=== PATIENT | female | born 1980 | race American Indian/Alaskan Native ===

== ENCOUNTER 2021-06-25 00:55 | Emergency (ER) | payer MEDICAID ==
[2021-06-25] MEDS ORDERED: IBUPROFEN 400 MG TAB PO ONE (03:39)
--- NOTE | 2021-06-25 03:40 | Emergency Department Report ---
ED ENT HPI - General Chief complaint: Dental/Oral Stated complaint: SEVERE TOOTH PAIN Time Seen by Provider: 06/25/21 03:30 Source: patient, RN notes reviewed Mode of arrival: Ambulatory Limitations: No Limitations - History of Present Illness Initial comments: This patient is a 40-year-old female who states that she is not , who presents to the ER today with a complaint of pain on tooth #17. The patient endorses sensitivity to hot and cold. The patient endorses left- sided neck discomfort and left-sided ear discomfort. Patient occasionally smokes cigarettes and black and milds. Brushes teeth on a semiregular basis. Does not floss on a regular basis. Last dental cleaning was about a year ago. Has not really taken much in the way of pain medication at home. He denies additional injuries and complaints. No stridor or trismus. No malocclusion MD complaint: tooth pain -: Gradual, days(s) Location: tooth # (17) Severity: moderate Quality: aching Consistency: constant Improves with: other Worsens with: other (Eating, palpation,) Context- Dental: history of dental caries, poor dental care Associated Symptoms: gum swelling, toothache. denies: pain with swallowing, sore throat, tinnitus, hearing loss, discharge from ear, rhinorrhea - Related Data Previous Rx's Medication Instructions Recorded Last Taken Type Acetaminophen [Non-Aspirin Extra 500 mg PO Q6HR PRN #30 tablet 06/25/21 Unknown Rx Strength] Chlorhexidine Mouthwash [Peridex] 15 ml MM BID #1 bottle 06/25/21 Unknown Rx Ibuprofen [Motrin] 600 mg PO Q8H PRN #30 tablet 06/25/21 Unknown Rx Nicotine Polacrilex [Nicotine Gum] 4 mg BC PRN #1 pack 06/25/21 Unknown Rx Penicillin V Potassium 500 mg PO Q6HR #28 tab 06/25/21 Unknown Rx Allergies Allergy/AdvReac Type Severity Reaction Status Date / Time No Known Allergies Allergy Unverified 06/25/21 00:59 ED Dental HPI - General Chief complaint: Dental/Oral Stated complaint: SEVERE TOOTH PAIN Time Seen by Provider: 06/25/21 03:30 Source: patient Mode of arrival: Ambulatory Limitations: No Limitations - Related Data Previous Rx's Medication Instructions Recorded Last Taken Type Acetaminophen [Non-Aspirin Extra 500 mg PO Q6HR PRN #30 tablet 06/25/21 Unknown Rx Strength] Chlorhexidine Mouthwash [Peridex] 15 ml MM BID #1 bottle 06/25/21 Unknown Rx Ibuprofen [Motrin] 600 mg PO Q8H PRN #30 tablet 06/25/21 Unknown Rx Nicotine Polacrilex [Nicotine Gum] 4 mg BC PRN #1 pack 06/25/21 Unknown Rx Penicillin V Potassium 500 mg PO Q6HR #28 tab 06/25/21 Unknown Rx Allergies Allergy/AdvReac Type Severity Reaction Status Date / Time No Known Allergies Allergy Unverified 06/25/21 00:59 ED Review of Systems ROS: Stated complaint: SEVERE TOOTH PAIN Other details as noted in HPI Constitutional: denies: fever Eyes: denies: vision change ENT: dental pain. denies: hearing loss, epistaxis Respiratory: see HPI Cardiovascular: as per HPI Endocrine: see HPI Gastrointestinal: as per HPI Genitourinary: as per HPI Musculoskeletal: as per HPI Skin: as per HPI Neurological: as per HPI Psychiatric: as per HPI ED Past Medical Hx - Past Medical History Previous Medical History?: No - Surgical History Past Surgical History?: No - Medications Home Medications: Home Medications Medication Instructions Recorded Confirmed Last Taken Type Acetaminophen [Non-Aspirin Extra 500 mg PO Q6HR PRN #30 tablet 06/25/21 Unknown Rx Strength] Chlorhexidine Mouthwash [Peridex] 15 ml MM BID #1 bottle 06/25/21 Unknown Rx Ibuprofen [Motrin] 600 mg PO Q8H PRN #30 tablet 06/25/21 Unknown Rx Nicotine Polacrilex [Nicotine Gum] 4 mg BC PRN #1 pack 06/25/21 Unknown Rx Penicillin V Potassium 500 mg PO Q6HR #28 tab 06/25/21 Unknown Rx ED Physical Exam - General Limitations: No Limitations General appearance: alert, in no apparent distress, obese - Head Head exam: Present: atraumatic, normocephalic - Eye Eye exam: Present: normal appearance, EOMI. Absent: nystagmus - ENT ENT exam: Present: normal exam, normal orophraynx, mucous membranes moist, TM's normal bilaterally, normal external ear exam, other (There is poor dentition noted. There is an impacted tooth #17. The tooth is minimally tender to percussion. Gingival inflammation is appreciated. There is no periapical abscess.) - Neck Neck exam: Present: normal inspection, full ROM, other (There is no stridor. There is no trismus. There is no malocclusion. There is no neck tenderness. There is no pain with tracheal manipulation). Absent: tenderness, meningismus - Respiratory Respiratory exam: Present: normal lung sounds bilaterally. Absent: respiratory distress, wheezes, stridor, decreased breath sounds - Cardiovascular Cardiovascular Exam: Present: regular rate, normal rhythm, normal heart sounds. Absent: bradycardia, tachycardia, irregular rhythm, systolic murmur, diastolic murmur, rubs, gallop - GI/Abdominal GI/Abdominal exam: Present: soft. Absent: distended, tenderness, guarding, rebound, rigid, pulsatile mass - Extremities Exam Extremities exam: Present: normal inspection, full ROM, other (2+ pulses noted in the bilateral upper and lower extremities. There is no palpable cord. negative Homans sign. Muscular compartments are soft. The pelvis is stable.). Absent: pedal edema, calf tenderness - Back Exam Back exam: Present: normal inspection, full ROM. Absent: tenderness, CVA tenderness (R), CVA tenderness (L), paraspinal tenderness, vertebral tenderness - Neurological Exam Neurological exam: Present: alert, oriented X3, normal gait, other (No facial droop. Tongue midline. Extraocular movements intact bilaterally. Facial sensation intact to light touch in V1, V2, V3 distribution bilaterally. 5 and a 5 strength in 4 extremities. Sensation intact to light touch in 4 extremities.). Absent: motor sensory deficit - Psychiatric Psychiatric exam: Present: normal affect, normal mood - Skin Skin exam: Present: warm, dry, intact, normal color. Absent: rash ED Course Vital Signs 06/25/21 00:59 Temperature 98.8 F Pulse Rate 79 Respiratory 16 Rate Blood Pressure 152/91 O2 Sat by Pulse 97 Oximetry ED Medical Decision Making - Lab Data Vital Signs 06/25/21 00:59 Temperature 98.8 F Pulse Rate 79 Respiratory 16 Rate Blood Pressure 152/91 O2 Sat by Pulse 97 Oximetry - Medical Decision Making Differential diagnosis, include but not limited to: Dental caries, encounter for tobacco cessation Assessment and plan: 40-year-old female with dental caries, poor dentition, dentalgia. She does not appear to have an emergent medical condition present at this time. Pain medication, chlorhexidine, penicillin, tobacco cessation, outpatient dental follow-up. Return precautions reviewed. Critical care attestation.: If time is entered above; I have spent that time in minutes in the direct care of this critically ill patient, excluding procedure time. ED Disposition Clinical Impression: Dentalgia, Encounter for tobacco use cessation counseling Disposition: HOME / SELF CARE / HOMELESS Is pt being admited?: No Does the pt Need Aspirin: No Condition: Good Additional Instructions: [place] your teeth at least twice daily. Floss once every 24 hours. Discontinue tobacco smoking. Discontinue consumption of all smoke products. Follow-up with an outpatient dentist as soon as possible. Take the pain medication, chlorhexidine antibiotics and penicillin as directed. Please return to the emergency room right away with new pain, worsened pain, migration of pain, projectile vomiting, change in mental status, confusion, inab ility tolerate liquid feeds, new, worsened or different symptoms not present on the initial emergency room evaluation Prescriptions: Ibuprofen [Motrin] 600 mg PO Q8H PRN #30 tablet PRN Reason: Pain Acetaminophen [Non-Aspirin Extra Strength] 500 mg PO Q6HR PRN #30 tablet PRN Reason: Pain , Severe (7-10) Chlorhexidine Mouthwash [Peridex] 15 ml MM BID #1 bottle Referrals: [facility] [Outside] - 3-5 Days [facility] [Outside] - 3-5 Days
[2021-06-25 05:39] VITALS: BP 139/103
== END 2021-06-25 05:39 | disposition home or self-care (01) ==
LOC: ED 00:55
DX: K08.89 Other specified disorders of teeth and supporting structures (principal); F17.200 Nicotine dependence, unspecified, uncomplicated
CPT/HCPCS: 99282